=== PATIENT | male | born 1950 | race Caucasian/White ===

== ENCOUNTER 2020-08-08 09:29 | Day surgery (SDC) | payer MEDICARE ==
[~2020-08-08] VITALS: Ht 181.6 cm; Wt 121.8 kg
[2020-08-08] MEDS ORDERED: DULA0.75 SQ (10:12)
[2020-08-08] MEDS ORDERED: INSU100I13 SQ (10:12)
[2020-08-08] MEDS ORDERED: METF10007 PO (10:12)
[2020-08-08] MEDS ORDERED: NATE120T2 PO (10:12)
[2020-08-08] MEDS ORDERED: SITA100T PO (10:12)
[2020-08-08] MEDS ORDERED: MULT-717 PO (10:16)
[2020-08-08] MEDS ORDERED: ASPI81TA45 PO (10:16)
[2020-08-08] MEDS ORDERED: POTA2TAB8 PO (10:16)
[2020-08-08] MEDS ORDERED: CHOL10003 PO (10:16)
[2020-08-08] MEDS ORDERED: LEVO50TA5 PO (10:16)
[2020-08-08] MEDS ORDERED: ROSU20TA2 PO (10:16)
[2020-08-08] MEDS ORDERED: LOSA50TA14 PO (10:16)
[2020-08-08] MEDS ORDERED: CARV3.122 PO (10:16)
[2020-08-08] MEDS ORDERED: ALLO100T30 PO (10:16)
[2020-08-08 10:19] VITALS: BP 127/66
[2020-08-08] MEDS ORDERED: SODIUM CHLORIDE 0.9% 1,000 ML IV SCH (10:30)
[2020-08-08] MEDS ORDERED: PLEASE ENTER HEIGHT AND WEIGHT MC SCH (10:30)
[2020-08-08] MEDS ORDERED: MIDAZOLAM 1 MG/ML, 2ML ONE (10:31)
[2020-08-08] MEDS ORDERED: FENTANYL PF 100 MCG/2ML ONE (10:31)
[2020-08-08] MEDS ORDERED: VERAPAMIL 2.5 MG/ML, 2ML ONE (10:31)
[2020-08-08] MEDS ORDERED: NITROGLYCERIN 30 MCG/ML, 20ML VIAL ONE (10:32)
[2020-08-08] MEDS ORDERED: LIDOCAINE-MPF 1%, 5ML ONE (10:32)
[2020-08-08] MEDS ORDERED: HEPARIN 1,000 UNITS/ML, 10ML ONE (10:32)
[2020-08-08 10:57] LABS: BASOPHILS % (AUTO) 1 % (0-1); EOSINOPHILS % (AUTO) 2 % (1-7); LYMPHOCYTES % (AUTO) 26 % (22-44); MEAN CORPUSCULAR HGB CONC 33.5 g/dL (33.2-36.2); MEAN PLATELET VOLUME 7.7 fL (7.4-10.4); MONOCYTES % (AUTO) 8 % (2-9); NEUTROPHILS % (AUTO) 64 % (42-75); PLATELET COUNT 263 x10^3/uL (130-400); RED BLOOD COUNT 4.37 x10^6/uL (4.38-5.82); RED CELL DISTRIBUTION WIDTH 13.7 % (9.4-14.8)
[2020-08-08 11:00] LABS: MD NO
== END 2020-08-08 13:18 | disposition home or self-care (01) ==
LOC: CACL 09:29
PROVIDERS: ATTEND Internal Medicine Cardiovascular Disease
DX: R94.39 Abnormal result of other cardiovascular function study (principal); I25.10 Atherosclerotic heart disease of native coronary artery without angina pectoris; I10 Essential (primary) hypertension; E11.9 Type 2 diabetes mellitus without complications; E78.2 Mixed hyperlipidemia; E66.9 Obesity, unspecified; Z79.82 Long term (current) use of aspirin; Z68.38 Body mass index [BMI] 38.0-38.9, adult; Z79.4 Long term (current) use of insulin; Z79.890 Hormone replacement therapy; Z79.899 Other long term (current) drug therapy; Z95.5 Presence of coronary angioplasty implant and graft
CPT/HCPCS: 36415; 85025; 93458; 99156; C1769; C1894; J1644; J2250; J3010; Q9967